=== PATIENT | female | born 1960 | race Caucasian/White ===

== ENCOUNTER 2017-03-22 05:07 | Day surgery (SDC) | payer BC ==
[2017-03-21 14:03] VITALS: BMI 36.9
[2017-03-22] MEDS ORDERED: MIDAZOLAM HCL 2 MG/2 ML SINGLE DOSE VIAL ONE (09:21)
[2017-03-22] MEDS ORDERED: LIDOCAINE HCL/PF 2% SDV 5ML VIAL ONE (09:21)
[2017-03-22] MEDS ORDERED: PROPOFOL 20 ML ONE ×2 (09:21)
[2017-03-22] MEDS ORDERED: BACITRACIN 30 GM TUBE TOPICAL OINTMENT TP ONE (10:23)
[2017-03-22] MEDS ORDERED: ONDANSETRON 4 MG/2 ML VIAL IVPB PRN (10:40)
[2017-03-22] MEDS ORDERED: oxyCODONE HCL 5 MG TABLET PO PRN (10:40)
[2017-03-22] MEDS ORDERED: IBUPROFEN 800 MG/8 ML IJ IVPB PRN (10:40)
[2017-03-22] MEDS ORDERED: IBUPROFEN 600 MG TABLET (FP) PO PRN (10:40)
[2017-03-22] MEDS ORDERED: ACETAMINOPHEN 1000 MG/100 ML VIAL (NON FORMULARY) IVPB PRN (10:43)
[2017-03-22] MEDS ORDERED: ELECTROLYTE-148 SOLN 1,000 ML IV SCH (10:45)
[2017-03-22] MEDS ORDERED: LACTATED RINGERS SOLUTION 1,000 ML IV SCH (10:45)
--- NOTE | 2017-03-22 10:46 | HP ---
History & Physical Update - History History: No Change - Physical Physical: No Change - Assessment Assessment: No Change - Plan Plan: No Change (Consented for Hysteroscopy, Polypectomy, D&C, Left labial cystectomy and indicated procedures)
--- NOTE | 2017-03-22 10:51 | OP ---
Operative Note - Note: Operative Date: 03/22/17 Pre-Operative Diagnosis: 56 yo P1 with Perimenopausal vaginal bleeding, thick endometrium, Left labial cyst Operation: Hysteroscopy, Polypectomy, Dialation, Curettage, Left labial cystectomy Findings: 8wk retroverted uterus, Anterior and posterior endometrial wall polyps, overgrown endometrium, only Right ostia visualized Post-Operative Diagnosis: Same as Pre-op Surgeon: Carlotta Armas Anesthesiologist/FOUNDRY TENDER: Yumiko Trejo Anesthesia: MAC Specimens Removed: 1. Anterior wall polyp. 2. Posterior wall polyp. 3. Endometrial curettings. 4. Sebacious cyst contents and wall Estimated Blood Loss (mls): 10 Drains & Tubes with Location: Fluid defficit 0cc Drains, Volume Out (mls): 150 Fluid Volume Replaced (mls): 600 Operative Report Dictated: Yes
[2017-03-22 12:19] VITALS: TEMP 97.6
[2017-03-22 14:13] VITALS: BP 119/62; PULSE 56
--- NOTE | 2017-03-23 12:08 | PATH ---
Surgical Pathology Report Patient Name: KALIEY RECIO [facility]. Rec. #: [id number] /Age/Gender: 1960 (Age: 56) / F Account: [id number] Location: [facility] SURGICAL Taken: 03/22/2017 Received: 03/22/2017 Reported: 03/23/2017 Physicians: Carlotta Armas M.D. Specimen(s) Received A: UTERINE POLYP POSTERIOR B: ENDOMETRIAL CURETTINGS C: UTERINE POLYP ANTERIOR D: SEBACEOUS CYST MATERIAL AND CYST WALL Clinical History Excessive bleeding in the pre-menopausal period Final Diagnosis A. UTERINE POLYP, POSTERIOR, POLYPECTOMY: FRAGMENTS OF ENDOMETRIAL POLYP. B. ENDOMETRIUM, CURETTAGE: FRAGMENTS OF ENDOMETRIAL POLYP. BACKGROUND FRAGMENTS OF INACTIVE ENDOMETRIUM. FRAGMENTS OF BENIGN SMOOTH MUSCLE. SCANT FRAGMENTS OF BENIGN ENDOCERVICAL TISSUE AND BENIGN SQUAMOUS EPITHELIUM. C. UTERINE POLYP, ANTERIOR, POLYPECTOMY: FRAGMENTS OF ENDOMETRIAL POLYP. FRAGMENTS OF BENIGN SMOOTH MUSCLE. FRAGMENTS OF BENIGN SQUAMOUS EPITHELIUM. D. SEBACEOUS CYST MATERIAL AND CYST WALL, LABIAL CYST, LEFT, EXCISION: CONSISTENT WITH EPIDERMAL INCLUSION CYST. Electronically Signed Bill Pinon M.D. Gross Description A. Received in formalin labeled "uterine polyp posterior" is a 1.3 x 0.9 x 0.3 cm aggregate of ann-pink, irregular to polypoid soft tissue fragments. The specimen is submitted in toto in one cassette. B. Received in formalin labeled "endometrial curettings" is a 1.5 x 1.0 x 0.2 cm aggregate of ann-pink soft tissue fragments. The specimen is submitted in toto in one cassette. C. Received in formalin labeled "uterine polyps anterior" is a 1.8 x 1.2 x 0.3 cm aggregate of ann-pink soft tissue fragments. The formalin is filtered and the specimen is entirely submitted in one cassette. D. Received in formalin labeled "sebaceous cyst material and cyst wall" is a 1.3 x 0.7 x 0.2 cm aggregate of ann soft tissue fragments, possibly consistent with portions of a cyst and cyst contents. The formalin is filtered and the specimen is entirely submitted in one cassette. DL/03/22/2017 saudi/03/22/2017
--- NOTE | 2017-03-23 14:22 | OP ---
DATE OF OPERATION: 03/22/2017 PREOPERATIVE DIAGNOSIS: A 56-year-old para 1 with perimenopausal vaginal bleeding, thick endometrium, and left labial cyst. OPERATION: Hysteroscopy, polypectomy, dilation, curettage, left labial cystectomy. POSTOPERATIVE DIAGNOSIS: A 56-year-old para 1 with perimenopausal vaginal bleeding, thick endometrium, and left labial cyst. FINDINGS: An 8-week retroverted uterus, anterior and posterior endometrial wall polyp, overgrown endometrium, only right ostia visualized in the endometrial cavity. SURGEON: Carlotta Armas MD ANESTHESIOLOGIST: Yumiko Trejo MD ANESTHESIA: MAC. SPECIMENS REMOVED: 1. Anterior wall polyp. 2. Posterior wall polyp. 3. Endometrial curettings. 4. Sebaceous cyst contents and wall. DESCRIPTION OF THE OPERATIVE PROCEDURE: After assuring informed consent, patient was brought to the operating room where anesthesia was administered. Patient was placed in dorsal lithotomy position. A time-out was called, and patient was identified. Perineum was prepped and draped in sterile fashion. Bladder was emptied with red rubber catheter. The uterus was found to be retroverted. Awll speculums were placed intravaginally, the anterior, cervical lip was articulated with single-tooth tenaculum, and cervix was gradually dilated up to the size 17G. The 5-mm 30-degree scope was introduced through the cervix, and intrauterine contents were surveyed. Only right tubal ostia was visualized. Anterior and posterior wall polyps were identified and endometrium was found to be significantly overgrown. Subsequently, the sharp serrated curette was used to remove separately posterior wall and then anterior wall polyp. Endometrial curettage globally was performed as well. The hysteroscope was reintroduced and endometrial cavity was surveyed once more and was found to be intact, and without the polyps that were identified previously, subsequently all instruments were removed from the vagina with excellent hemostasis. The left labial 1-cm cyst was identified on labia majora and was incised with the scalpel and removed with Allis clamp and sent for pathology. Skin was subsequently closed with 2 interrupted sutures. Patient was repositioned into supine position, extubated, and brought to the recovery room in stable condition. URINE OUTPUT: 150 mL. FLUID GIVEN: Patient received 600 mL of fluid. ESTIMATED BLOOD LOSS: 10 mL. FLUID DEFICIT: 0 mL. Opal [id number] MTDD
== END 2017-03-22 14:13 | disposition home or self-care (01) ==
LOC: JASU-SURG 05:07
PROVIDERS: ATTEND Obstetrics & Gynecology
PROC: 0UBM0ZZ Excision of Vulva, Open Approach (ICD-10-PCS; 2017-03-22)
PROC: 0UB98ZX Excision of Uterus, Via Natural or Artificial Opening Endoscopic, Diagnostic (ICD-10-PCS; principal; 2017-03-22 09:00)
PROC: 0UDB8ZX Extraction of Endometrium, Via Natural or Artificial Opening Endoscopic, Diagnostic (ICD-10-PCS; 2017-03-22 09:00)
DX: N93.8 Other specified abnormal uterine and vaginal bleeding (principal); N90.7 Vulvar cyst; N84.0 Polyp of corpus uteri
CPT/HCPCS: 88304-TC; 88305-TC; 94760

== ENCOUNTER 2024-06-27 05:12 | Day surgery (SDC) | payer BC ==
[2024-06-26 09:33] VITALS: BMI 32.3
[~2024-06-27 05:12] MED LIST: ACETAMINOPHEN 325 MG TABLET (FP) PO PRN; CYCLOPENTOLATE HCL 1% OPHTH SOLN 2 ML BOTTLE OP SCH; KETOROLAC TROMETHAMINE 0.5% EYE DROP 1 DROP DROPS OP SCH; OFLOXACIN 0.3% OPHTHALMIC SOLUTION 5 ML BOTTLE OP SCH; PHENYLEPHRINE 2.5% OPHTH SOLN 15 ML BOTTLE OP SCH; TROPICAMIDE 1% OPHTH SOLN 15 ML BOTTLE OP SCH
[2024-06-27] MEDS ORDERED: KETOROLAC TROMETHAMINE 0.5% EYE DROP 1 DROP DROPS ONE (06:54)
[2024-06-27] MEDS ORDERED: PHENYLEPHRINE 2.5% OPTHALMIC DROP 2ML BOTTLE ONE (06:54)
[2024-06-27] MEDS ORDERED: TROPICAMIDE 1% OPHTH SOLN 15 ML BOTTLE ONE (06:55)
[2024-06-27] MEDS ORDERED: OFLOXACIN 0.3% OPHTHALMIC SOLUTION 5 ML BOTTLE ONE (06:55)
[2024-06-27] MEDS ORDERED: CYCLOPENTOLATE HCL 1% OPHTH SOLN 2 ML BOTTLE ONE (06:55)
[2024-06-27] MEDS ORDERED: BSS (NA/CA/MG/K) BALANCED SALT SOLUTION OPHTH SOLN 15 ML BOTTLE ONE (07:19)
[2024-06-27] MEDS ORDERED: TETRACAINE 0.5% OPHTH SOLN 2 ML BOTTLE ONE (07:19)
[2024-06-27] MEDS ORDERED: POVIDONE-IODINE 5% OPHTHALMIC PREP 30 ML SOLUTION ONE (07:19)
[2024-06-27] MEDS ORDERED: EPINEPHrine/PF 1 MG/1 ML (1:1,000) AMPULE ONE (07:19)
[2024-06-27] MEDS ORDERED: LIDOCAINE HCL/PF 1% SDV 5ML VIAL ONE (07:19)
[2024-06-27 07:25] VITALS: RESP 18
[2024-06-27] MEDS: TROPICAMIDE 1% OPHTH SOLN 15 ML BOTTLE OP SCH (07:42)
[2024-06-27] MEDS: KETOROLAC TROMETHAMINE 0.5% EYE DROP 1 DROP DROPS OP SCH (07:42)
[2024-06-27] MEDS: CYCLOPENTOLATE HCL 1% OPHTH SOLN 2 ML BOTTLE OP SCH (07:42)
[2024-06-27] MEDS: PHENYLEPHRINE 2.5% OPHTH SOLN 15 ML BOTTLE OP SCH (07:43)
[2024-06-27] MEDS: OFLOXACIN 0.3% OPHTHALMIC SOLUTION 5 ML BOTTLE OP SCH (07:44)
[2024-06-27] MEDS ORDERED: MIDAZOLAM HCL 2 MG/2 ML SINGLE DOSE VIAL ONE (08:45)
[2024-06-27] MEDS: TETRACAINE 0.5% OPHTH SOLN 2 ML BOTTLE OD ONE ×2 (09:14)
[2024-06-27] MEDS: POVIDONE-IODINE 5% OPHTHALMIC PREP 30 ML SOLUTION OD ONE ×2 (09:15)
[2024-06-27] MEDS: BSS (NA/CA/MG/K) BALANCED SALT SOLUTION OPHTH SOLN 15 ML BOTTLE IO ONE ×2 (09:21)
[2024-06-27] MEDS: LIDOCAINE HCL 1% PRESERVATIVE FREE - 30ML VIAL IO ONE ×2 (09:21)
[2024-06-27] MEDS: CHONDROITIN SU A/HYALUR SOD 1 KIT IO ONE ×2 (09:25)
[2024-06-27] MEDS: EPINEPHrine/PF 1 MG/1 ML (1:1,000) AMPULE SQ ONE ×2 (09:30)
[2024-06-27 12:27] VITALS: BP 119/58; PULSE 68; TEMP 97.9
== END 2024-06-27 10:30 | disposition home or self-care (01) ==
LOC: JASU-SURG 05:12
PROVIDERS: ATTEND Ophthalmology
PROC: 08RJ3JZ Replacement of Right Lens with Synthetic Substitute, Percutaneous Approach (ICD-10-PCS; principal; 2024-06-27 09:00)
DX: H26.9 Unspecified cataract (principal)
CPT/HCPCS: V2632